=== PATIENT | female | born 1970 | race Caucasian/White ===

== ENCOUNTER 2023-08-01 09:03 | Outpatient (REF) | payer BC, OTHER, SELFPAY ==
[2023-08-01 09:48] LABS: INR 1.02; PT 13.4 Sec (11.4-14.6)
[2023-08-01] MEDS: TYLENOL 650 MG PO (13:15)
[2023-08-01 13:30] VITALS: BP 123/78
== END 2023-08-01 13:45 | disposition home or self-care (01) ==
LOC: RAD 09:03
PROVIDERS: ATTENDING PHYSICIAN Anesthesiology Pain Medicine; REFERRING PHYSICIAN Physician Assistant
DX: M96.1 Postlaminectomy syndrome, not elsewhere classified (principal)
CPT/HCPCS: 36415; 62305; 72126; 72129; 72132; 85610